=== PATIENT | female | born 1940 | race Caucasian/White ===

== ENCOUNTER 2021-02-25 11:47 | Observation (INO) | payer OTHER ==
[~2021-02-25] VITALS: Ht 167.6 cm; Wt 57.8 kg
[2021-02-25 13:01] LABS: RED BLOOD COUNT 4.26 M/UL (4.00-5.10)
[2021-02-25] MEDS ORDERED: VOLTAREN EC 7575 MG PO (18:42)
[2021-02-25] MEDS ORDERED: ENULOSE10 GM/15 M PO (18:42)
[2021-02-25] MEDS ORDERED: LOVASTATIN40 MG PO (18:43)
[2021-02-25] MEDS ORDERED: HYDROCHLOROTHIA25 MG PO (18:43)
[2021-02-25] MEDS ORDERED: PROZAC 20 MG CA20 MG PO (18:43)
[2021-02-25] MEDS ORDERED: LANSOPRAZOLE30 MG PO (18:44)
[2021-02-25] MEDS ORDERED: REMERON 15 MG T15 MG PO (18:44)
[2021-02-25] MEDS ORDERED: ALENDRONATE SOD70 MG PO (18:44)
[2021-02-25] MEDS ORDERED: TOPROL XL25 MG PO (18:45)
[2021-02-25] MEDS ORDERED: BUSPIRONE HCL5 MG PO (18:45)
[2021-02-26 04:18] LABS: HEMOGLOBIN 11.6 gm/dl (12.3-15.3); RED BLOOD COUNT 3.55 M/UL (4.00-5.10); WHITE BLOOD COUNT 7.9 K/UL (4.5-11.0)
[2021-02-26] MEDS ORDERED: VENTOLIN HFA 66.7 GM INH (16:54)
== END 2021-02-26 18:25 | disposition home or self-care (01) ==
LOC: ER1 11:47 → MED SURG 4 17:19 → CDU 17:19 → MED SURG 4 21:48
PROVIDERS: Physician Assistant; ADMIT Internal Medicine
DX: R77.8 Other specified abnormalities of plasma proteins (principal); D75.89 Other specified diseases of blood and blood-forming organs; G89.4 Chronic pain syndrome; I10 Essential (primary) hypertension; E78.5 Hyperlipidemia, unspecified; H91.90 Unspecified hearing loss, unspecified ear; M54.9 Dorsalgia, unspecified; R01.1 Cardiac murmur, unspecified; I51.7 Cardiomegaly; K58.9 Irritable bowel syndrome, unspecified; Z87.891 Personal history of nicotine dependence; Z66 Do not resuscitate; Z88.5 Allergy status to narcotic agent; Z79.899 Other long term (current) drug therapy; Z20.822 Contact with and (suspected) exposure to COVID-19
CPT/HCPCS: ECHO; 36415; 36600; 70450; 71045; 80048; 80053; 80307; 81001; 82550; 82553; 82607; 82746; 82803; 83874; 84484; 85025; 85610; 85730; 87040; 87086; 93005; 93306; 94640; 94664; 94760; 96372; 99285; G0378; J1650; J7030; Q9967; U0002

== ENCOUNTER → 2021-03-13 | Outpatient (CLI) | payer OTHER ==
[~2021-03-13] MED LIST: ALENDRONATE SOD70 MG PO; BUSPIRONE HCL5 MG PO; ENULOSE10 GM/15 M PO; HYDROCHLOROTHIA25 MG PO; LANSOPRAZOLE30 MG PO; LOVASTATIN40 MG PO; PROZAC 20 MG CA20 MG PO; REMERON 15 MG T15 MG PO; TOPROL XL25 MG PO; VENTOLIN HFA 66.7 GM INH; VOLTAREN EC 7575 MG PO
== END ==
LOC: EXRD 15:49
DX: R06.02 Shortness of breath (principal); J43.9 Emphysema, unspecified; Z87.891 Personal history of nicotine dependence
CPT/HCPCS: 71046; 94010

== ENCOUNTER → 2021-10-24 | Outpatient (CLI) | payer OTHER ==
[~2021-10-24] VITALS: Ht 165.1 cm; Wt 54.4 kg
[~2021-10-24] MED LIST changes: +AMLODIPINE BESYL5 MG PO; +ATENOLOL25 MG PO; +DEXAMETHASONE4 MG PO; +NIFEDIPINE ER30 M1 PO; +PAIN RELIEF500 M1 PO; +PREVACID30 MG PO
== END ==
LOC: EROP 10:36
DX: U07.1 COVID-19 (principal); Z23 Encounter for immunization; I12.9 Hypertensive chronic kidney disease with stage 1 through stage 4 chronic kidney disease, or unspecified chronic kidney disease; N18.9 Chronic kidney disease, unspecified; J98.4 Other disorders of lung
CPT/HCPCS: M0247; Q0247

== ENCOUNTER 2021-10-27 11:09 | Inpatient (IN) | payer OTHER ==
[~2021-10-27] VITALS: Ht 165.1 cm; Wt 54.4 kg
[~2021-10-27 11:09] MED LIST changes: -AMLODIPINE BESYL5 MG PO; -ATENOLOL25 MG PO; -DEXAMETHASONE4 MG PO; -NIFEDIPINE ER30 M1 PO; -PAIN RELIEF500 M1 PO; -PREVACID30 MG PO
[2021-10-27 14:10] LABS: HEMOGLOBIN 13.1 gm/dl (12.3-15.3); RED BLOOD COUNT 4.21 M/UL (4.00-5.10)
[2021-10-27 14:27] LABS: BUN/CREATININE RATIO 66 (0-10)
[2021-10-27] MEDS ORDERED: ATENOLOL25 MG PO (17:03)
[2021-10-27] MEDS ORDERED: AMLODIPINE BESYL5 MG PO (17:03)
[2021-10-27] MEDS ORDERED: PREVACID30 MG PO (17:04)
[2021-10-27] MEDS ORDERED: NIFEDIPINE ER30 M1 PO (17:04)
[2021-10-27] MEDS ORDERED: DEXAMETHASONE4 MG PO (17:05)
[2021-10-27] MEDS ORDERED: PAIN RELIEF500 M1 PO (17:05)
[2021-10-28 05:00] LABS: HEMOGLOBIN 13.1 gm/dl (12.3-15.3); RED BLOOD COUNT 4.23 M/UL (4.00-5.10); WHITE BLOOD COUNT 19.8 K/UL (4.5-11.0)
[2021-10-29 11:25] LABS: HEMOGLOBIN 12.6 gm/dl (12.3-15.3); RED BLOOD COUNT 4.1 M/UL (4.00-5.10)
[2021-10-29 11:27] LABS: WHITE BLOOD COUNT 14.6 K/UL (4.5-11.0)
[2021-10-29 12:06] LABS: BUN/CREATININE RATIO 61 (0-10)
[2021-10-30 03:17] LABS: HEMOGLOBIN 12.4 gm/dl (12.3-15.3); RED BLOOD COUNT 4.07 M/UL (4.00-5.10); WHITE BLOOD COUNT 12.6 K/UL (4.5-11.0)
[2021-10-30 04:08] LABS: BUN/CREATININE RATIO 56 (0-10)
[2021-10-31 02:43] LABS: HEMOGLOBIN 13.5 gm/dl (12.3-15.3); RED BLOOD COUNT 4.27 M/UL (4.00-5.10); WHITE BLOOD COUNT 13.5 K/UL (4.5-11.0)
[2021-10-31 06:48] LABS: HEMOGLOBIN 10.3 gm/dl (12.3-15.3)
[2021-10-31 08:38] LABS: BUN/CREATININE RATIO 54 (0-10)
[2021-10-31 15:41] LABS: HEMOGLOBIN 8.9 gm/dl (12.3-15.3)
[2021-10-31 22:38] LABS: HEMOGLOBIN 9.6 gm/dl (12.3-15.3)
[2021-11-01 07:29] LABS: RED BLOOD COUNT 3.88 M/UL (4.00-5.10)
[2021-11-01 07:34] LABS: HEMOGLOBIN 11.9 gm/dl (12.3-15.3); WHITE BLOOD COUNT 17.4 K/UL (4.5-11.0)
[2021-11-01 08:00] LABS: BUN/CREATININE RATIO 59 (0-10)
[2021-11-02 04:26] LABS: HEMOGLOBIN 12.8 gm/dl (12.3-15.3); RED BLOOD COUNT 4.05 M/UL (4.00-5.10); WHITE BLOOD COUNT 21.1 K/UL (4.5-11.0)
[2021-11-02 04:33] LABS: BUN/CREATININE RATIO 49 (0-10)
[2021-11-03 06:29] LABS: RED BLOOD COUNT 3.94 M/UL (4.00-5.10)
[2021-11-03 06:42] LABS: BUN/CREATININE RATIO 36 (0-10)
[2021-11-03] MEDS ORDERED: DEXAMETHASONE2 MG PO (09:56)
[2021-11-03] MEDS ORDERED: PROTONIX40 MG PO (09:56)
[2021-11-03] MEDS ORDERED: IPRAT-ALBUT 0.5-3 ML NEB (09:56)
[2021-11-03] MEDS ORDERED: BUDESONIDE0.5 MG/2 M NEB (09:56)
[2021-11-03] MEDS ORDERED: BENZONATATE100 MG PO (09:56)
[2021-11-03] MEDS ORDERED: AUGMENTIN 875-1 EACH PO (09:56)
[2021-11-03] MEDS ORDERED: FLORASTOR250 MG PO (09:56)
[2021-11-03] MEDS ORDERED: LASIX40 MG PO (10:00)
--- NOTE | 2021-11-03 11:51 | NUR ---
O2 SATURATION IS 87% ON ROOM AIR
== END 2021-11-03 13:27 | disposition home or self-care (01) | DRG 177 ==
LOC: ER1 11:09 → PROG CARE 15:28 → CDU 15:28 → PROG CARE 10-28 18:58
PROVIDERS: Internal Medicine; Physician Assistant; ADMIT Internal Medicine Infectious Disease
PROC: 8E0ZXY6 Isolation (ICD-10-PCS; 2021-10-27)
PROC: 3E0333Z Introduction of Anti-inflammatory into Peripheral Vein, Percutaneous Approach (ICD-10-PCS; 2021-10-27)
PROC: XW033E5 Introduction of Remdesivir Anti-infective into Peripheral Vein, Percutaneous Approach, New Technology Group 5 (ICD-10-PCS; 2021-10-28)
PROC: XW0DXM6 Introduction of Baricitinib into Mouth and Pharynx, External Approach, New Technology Group 6 (ICD-10-PCS; 2021-10-29)
PROC: 5A0955A Assistance with Respiratory Ventilation, Greater than 96 Consecutive Hours, High Flow/Velocity Cannula (ICD-10-PCS; 2021-10-30)
PROC: 30233N1 Transfusion of Nonautologous Red Blood Cells into Peripheral Vein, Percutaneous Approach (ICD-10-PCS; principal; 2021-10-31)
DX: U07.1 COVID-19 (principal); J12.82 Pneumonia due to coronavirus disease 2019; J96.21 Acute and chronic respiratory failure with hypoxia; E87.2 Acidosis; D62 Acute posthemorrhagic anemia; K92.2 Gastrointestinal hemorrhage, unspecified; I82.611 Acute embolism and thrombosis of superficial veins of right upper extremity; N17.9 Acute kidney failure, unspecified; Z66 Do not resuscitate; I10 Essential (primary) hypertension; F41.9 Anxiety disorder, unspecified; K58.0 Irritable bowel syndrome with diarrhea; E78.00 Pure hypercholesterolemia, unspecified; F17.210 Nicotine dependence, cigarettes, uncomplicated; E78.5 Hyperlipidemia, unspecified; R53.81 Other malaise; H91.90 Unspecified hearing loss, unspecified ear; J43.9 Emphysema, unspecified; G89.4 Chronic pain syndrome; E86.0 Dehydration; Z83.3 Family history of diabetes mellitus; Z88.5 Allergy status to narcotic agent; Z90.89 Acquired absence of other organs; Z79.899 Other long term (current) drug therapy; Z79.82 Long term (current) use of aspirin; Z23 Encounter for immunization
CPT/HCPCS: 36415; 36600; 71045; 80053; 80202; 82550; 82553; 82728; 82803; 83605; 83615; 83735; 83874; 83880; 84100; 84484; 85014; 85018; 85025; 85379; 85610; 86140; 86850; 86870; 86900; 86901; 86902; 86920; 86922; 93005; 93970; 94640; 94664; 94760; 96365; 97162; 99285; C1751; C9113; J0248; J0696; J1100; J1335; J1650; J1940; J2185; J2920; J2930; J3370; J7030; J7050; J7070; P9016; Q9967; U0002